=== PATIENT | female | born 1985 | race American Indian/Alaskan Native ===

== ENCOUNTER 2016-12-29 11:08 | Emergency (ER) | payer MEDICAID ==
[2016-12-29 11:18] VITALS: BP 110/59
[2016-12-29 11:55] LABS: Hematocrit 32.9 % (30.3-42.9); Mean Corpuscular HGB Conc 34 % (30-34); Mean Corpuscular Hemoglobin 28 pg (28-32); Mean Corpuscular Volume 83 fl (79-97); Platelet Count 203 K/mm3 (140-440); Red Blood Count 3.99 M/mm3 (3.65-5.03); Red Cell Distribution Width 13.8 % (13.2-15.2); White Blood Count 9.5 K/mm3 (4.5-11.0)
[2016-12-29 11:59] LABS: Bacteria,Urine 1+ /HPF (Negative); Bilirubin,Urine NEG (Negative); Blood,Urine NEG (Negative); Ketones,Urine NEG (Negative); Leukocyte Esterase,Urine NEG (Negative); Nitrite,Urine NEG (Negative); Protein,Urine <15 mg/dL mg/dL (Negative); Urobilinogen,Urine < 2.0 mg/dL (<2.0); WBC,Urine < 1.0 /HPF (0.0-6.0)
[2016-12-29 12:12] LABS: Anion Gap 19 mmol/L; BUN/Creatinine Ratio 12; Blood Urea Nitrogen 6 mg/dL (7-17); Calcium 8.9 mg/dL (8.4-10.2); Carbon Dioxide 24 mmol/L (22-30); Chloride 97.1 mmol/L (98-107); Glucose 92 mg/dL (65-100); Potassium 3.8 mmol/L (3.6-5.0); Sodium 136 mmol/L (137-145)
== END 2016-12-29 12:00 | disposition left against medical advice (07) ==
LOC: ED 11:08
DX: Z53.21 Procedure and treatment not carried out due to patient leaving prior to being seen by health care provider (principal)
CPT/HCPCS: 36415; 80048; 81001; 84702; 85027

== ENCOUNTER 2017-05-08 16:58 | Outpatient (CLI) | payer MEDICAID ==
[2017-05-08] MEDS ORDERED: LACTATED RINGERS 500 ML IV ONE (18:43)
[2017-05-08 19:07] LABS: Bacteria,Urine 2+ /HPF (Negative); Bilirubin,Urine NEG (Negative); Blood,Urine NEG (Negative); Color,Urine Yellow (Yellow); Mucus,Urine FEW /HPF; Protein,Urine <15 mg/dL mg/dL (Negative); Urobilinogen,Urine < 2.0 mg/dL (<2.0)
[2017-05-08] MEDS ORDERED: ROCEPHIN/NS 1 GM/50 ML 1 GM/50 ML BAG IV ONE (20:48)
[2017-05-08] MEDS ORDERED: BRETHINE SUB-Q ONE (20:48)
[2017-05-08] MEDS ORDERED: NORMOSOL-R PH 7.4 1,000 ML IV ONE ×2 (20:50→20:52)
[2017-05-08] MEDS ORDERED: cefTRIAXone 1 GM in NACL 0.9% 20 ML IV ONE (21:00)
[2017-05-08] MEDS ORDERED: NACL 0.9% 100 ML ONE (21:49)
[2017-05-08 21:56] VITALS: BP 124/63
--- NOTE | 2017-05-08 22:22 | Event Note ---
Date: 05/08/17 Pt does not appear to have SROM as per triage nurse exam. She does seem to have uti and was given rocephin 1g IV. she also has gotten IVFs for the contractions. cx was 1cm. Will monitor closely and if no cervical change will d/ w home. BPP and COCO were both normal with 10/10 as final scoring.
--- NOTE | 2017-05-09 00:05 | Ultrasound Report ---
FINAL REPORT PROCEDURE: US OB BPP WO NON-STRESS TECHNIQUE: Sonographic evaluation for breathing, movement, tone, and amniotic fluid volume was performed. CPT 77286 HISTORY: catogery 2 tracing COMPARISON: No prior studies are available for comparison. FINDINGS: Amniotic fluid volume: Normal-score 2. At least one vertical pocket > 2 cm or more in vertical axis. breathing: Normal-score 2. movement: Normal-score 2. tone: Normal. Score: 8 of 8. heart rate is 156 beats per minute IMPRESSION: Normal biophysical profile.
--- NOTE | 2017-05-09 00:06 | Ultrasound Report ---
FINAL REPORT PROCEDURE: US OB LIMITED TECHNIQUE: Real-time limited sonographic examination was performed for evaluation of amniotic fluid for each fetus with image documentation (1 or more fetuses). CPT 95853 HISTORY: leaking fluids COMPARISON: No prior studies are available for comparison. FINDINGS: There single intrauterine gestation with cephalic presentation. heart rate is 156 beats per minute. Amniotic fluid index is 14 centimeters. IMPRESSION: 1 amniotic fluid index is 14 centimeters.
[2017-05-09] MEDS ORDERED: NACL 0.9% IV SCH (03:00)
== END 2017-05-08 22:47 | disposition home or self-care (01) ==
LOC: TRG 16:58
PROVIDERS: ATTEND Obstetrics & Gynecology
DX: O42.913 Preterm premature rupture of membranes, unspecified as to length of time between rupture and onset of labor, third trimester (principal); O47.03 False labor before 37 completed weeks of gestation, third trimester; Z3A.33 33 weeks gestation of pregnancy
CPT/HCPCS: 76815; 76819; 81001; J0696; J3105

== ENCOUNTER 2017-06-09 23:16 | Outpatient (CLI) | payer MEDICAID | END 2017-06-10 | disposition home or self-care (01) | LOC: TRG 23:16 | PROVIDERS: ATTEND Obstetrics & Gynecology | DX: O47.1 False labor at or after 37 completed weeks of gestation (principal); Z3A.38 38 weeks gestation of pregnancy | CPT/HCPCS: 59025 ==

== ENCOUNTER 2017-06-15 06:36 | Inpatient (IN) | payer MEDICAID ==
[2017-06-15] MEDS ORDERED: MINERAL OIL PO PRN (07:58)
[2017-06-15] MEDS ORDERED: STADOL IV PRN (07:58)
[2017-06-15] MEDS ORDERED: ePHEDrine SULFATE IV PRN ×2 (07:58→11:00)
[2017-06-15] MEDS ORDERED: SUBLIMAZE IV PRN (07:58)
[2017-06-15] MEDS ORDERED: XYLOCAINE 2% INFILTRATI ONE (07:58)
[2017-06-15] MEDS ORDERED: BRETHINE SUB-Q PRN (07:58)
[2017-06-15] MEDS ORDERED: ZOFRAN IV PRN (07:58)
[2017-06-15] MEDS ORDERED: PITOCin/NS 20 UNIT/1000ML DRIP 20 UNITS/1,000 ML BAG IV SCH ×2 (08:00→16:57)
--- NOTE | 2017-06-15 08:14 | History and Physical Report ---
History of Present Illness Date of examination: 06/15/17 Chief complaint: LABOR, ctx rated 7/10 on pain scale History of present illness: EDC Calculations by LMP: 06/23/2017 Past History : 5 Term Births: 2 Premature Births: 0 Living Children: 2 Para: 2 Mult. Births: 0 Prev : 0 Prev. attempt? 0 Aborta: 2 Elect. Ab: 2 Spont. Ab: 0 Ectopics: 0 # 1 Delivery date: 2000 Delivery type: EAB # 2 Delivery date: 05/22/2006 Weeks Gestation: 37 labor: no Delivery type: Hours of labor: 7 Anesthesia type: epidural Delivery location: [place] [facility] Sex: Female weight: 6-11 Comments: no complications # 3 Delivery date: 08/25/2011 Weeks Gestation: 38 labor: no Delivery type: Vaginal Hours of labor: 5 Anesthesia type: epidural Delivery location: [facility] Sex: female weight: 6.75 Comments: none # 4 Delivery date: 03/24/2016 Delivery type: EAB Past Medical History: Anemia Past Surgical History: TOP 2016 D&C:(2000) Family History Summary: Other family member - Has No Family History of Ovarvian Cancer - Entered On: Other family member - Has No Family History of Colon Cancer - Entered On: 2016 Other family member - Has No Family History of Breast Cancer - Entered On: 2016 Other family member - Has Family History of Lung Cancer - Entered On: 10/30/2016 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 of genital herpes: no Genetic History Congenital Heart Defect: Mom: no Dad: no Ciro Disease: Mom: no Dad: no Thalassemia Mom: no Dad: no Neural Tube Defect Mom: no Dad: no Down's Syndrome Mom: no Dad: no Uzair-Sachs Mom: no Dad: no Sickle Cell Disease/Trait Mom: yes Dad: no Comments: Father has trait Hemophilia Mom: no Dad: no Muscular Dystrophy Mom: no Dad: no Cystic Fibrosis Mom: no Dad: no [place] Chorea Mom: no Dad: no Mental Retardation Mom: no Dad: no Fragile X Mom: no Dad: no Other Genetic/Chromosomal Disorder Mom: no Dad: no Child w/other defect Mom: no Dad: no Enviromental Exposures Xray Exposure: yes Medication, drug, or alcohol use since LMP: no Chemical/Other Exposure: no Exposure to Cat Liter: no Hx of Parvovirus (Fifth Disease): no Comments: Dental Active Medications (reviewed today): PROMETHAZINE HCL 25 MG TABS (PROMETHAZINE HCL) 1 po q 6 hrs prn nausea FORMULA 27-1 MG ORAL TABS ( VIT-FE FUMARATE-FA) 1 po q day as directed Current Allergies (reviewed today): No known allergies Past History Past Medical History: other (see HPI) Past Surgical History: other (see HPI) 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) Family/Genetic History: other (See HPI) - Obstetrical History Expected Date of Delivery: 06/23/17 Actual Gestation: 38 Week(s) 6 Day(s) : 5 Para: 2 Hx # Term Pregnancies: 2 Number of Pregnancies: 0 Spontaneous Abortions: 0 Induced : 2 Number of Living Children: 2 Medications and Allergies Allergies Allergy/AdvReac Type Severity Reaction Status Date / Time No Known Allergies Allergy Unverified 01/04/14 17:40 Home Medications Medication Instructions Recorded Confirmed Last Taken Type Tablet 1 tab PO QDAY 06/09/17 06/15/17 06/14/17 History Active Meds: Active Medications Butorphanol Tartrate (Stadol) 2 mg IV Q2H PRN PRN Reason: Pain , Severe (7-10) Ephedrine Sulfate (Ephedrine Sulfate) 10 mg IV Q2M PRN PRN Reason: Hypotension Fentanyl (Sublimaze) 100 mcg IV Q2H PRN PRN Reason: Labor Pain Lactated Ringer's (Lactated Ringers) 1,000 mls @ 125 mls/hr IV DIRECT HESHAM Oxytocin/Sodium Chloride (Pitocin/Ns 20 Unit/1000ml Drip) 20 units in 1,000 mls @ 125 mls/hr IV DIRECT HESHAM Ampicillin Sodium (Polycillin/Ns 2 Gm/100 Ml) 2 gm in 100 mls @ 100 mls/hr IV ONCE HESHAM Ampicillin Sodium (Ampicillin/Ns 1 Gm/50 Ml) 1 gm in 50 mls @ 100 mls/hr IV Q4H HESHAM Lidocaine (Xylocaine 2%) 20 ml INFILTRATI ONCE ONE Stop: 06/15/17 07:59 Mineral Oil (Mineral Oil) 30 ml PO QHS PRN PRN Reason: Constipation Ondansetron HCl (Zofran) 4 mg IV Q8H PRN PRN Reason: Nausea And Vomiting Terbutaline Sulfate (Brethine) 0.25 mg SUB-Q ONCE PRN PRN Reason: Hyperstimulation/Hypertonicity Review of Systems All systems: negative - Vital Signs Vital signs: Vital Signs Pulse BP 94 H 119/58 06/15/17 06:51 06/15/17 06:51 Temp Pulse Resp BP Pulse Ox 98.5 F 95 H 18 119/58 100 06/15/17 06:56 06/15/17 07:59 06/15/17 06:56 06/15/17 06:51 06/15/17 07:59 - Physical Exam Breasts: Positive: normal Cardiovascular: Regular rate Lungs: Positive: Clear to auscultation, Normal air movement Abdomen: Positive: normal appearance, soft Genitourinary (Female): Positive: normal external genitalia, normal perenium Vulva: both: normal Vagina: Positive: normal moisture Uterus: Positive: normal size, normal contour Extremities: Positive: normal - Obstetrical FHR: auscultation normal Uterine Contraction Monitor Mode: External Cervical Dilatation: 5 Uterine Contraction Pattern: Regular Uterine Tone Measurement Phase: Contraction Uterine Contraction Intensity: Moderate Results All other labs normal. 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 GBS+, Admission orders in chart. Dr. Nieves aware. anticipate . - Patient Problems (1) Anemia affecting in third trimester Current Visit: Yes Status: Acute (2) 39 weeks gestation of Current Visit: Yes Status: Acute (3) Active labor at term Current Visit: Yes Status: Acute (4) GBS (group B Streptococcus carrier), +RV culture, currently Current Visit: Yes Status: Acute
[2017-06-15] MEDS: LACTATED RINGERS 1,000 ML IV SCH ×3 (08:30→10:54)
[2017-06-15 08:37] LABS: Hematocrit 28.9 % (30.3-42.9); Hemoglobin 8.9 gm/dl (10.1-14.3); Mean Corpuscular HGB Conc 31 % (30-34); Mean Corpuscular Volume 72 fl (79-97); Platelet Count 218 K/mm3 (140-440); Red Blood Count 4.03 M/mm3 (3.65-5.03); Red Cell Distribution Width 17.7 % (13.2-15.2)
[2017-06-15 08:42] LABS: Mean Corpuscular Hemoglobin 22 pg (28-32)
[2017-06-15] MEDS ORDERED: POLYCILLIN/NS 2 GM/100 ML 2 GM/100 ML BAG IV SCH (09:00)
--- NOTE | 2017-06-15 10:46 | Anesthesia Consultation ---
Anesthesia Consult and Med Hx Date of service: 06/15/17 - Airway Anesthetic Teeth Evaluation: Good ROM Head & Neck: Adequate Mental/Hyoid Distance: Adequate Mallampati Class: Class II Intubation Access Assessment: Good - Pulmonary Exam CTA: Yes - Cardiac Exam Cardiac Exam: No Murmur - Pre-Operative Health Status ASA Pre-Surgery Classification: ASA2 Proposed Anesthetic Plan: Epidural - Pulmonary Hx Asthma: No COPD: No Hx Pneumonia: No - Cardiovascular System Hx Hypertension: No - Central Nervous System Hx Seizures: No Hx Psychiatric Problems: No - Endocrine Hx Renal Disease: No Hx End Stage Renal Disease: No Hx Hypothyroidism: No Hx Hyperthyroidism: No - Hematic Hx Anemia: Yes Hx Sickle Cell Disease: Yes (TRAIT) - Other Systems Hx Alcohol Use: No
[2017-06-15] MEDS ORDERED: fentaNYL-BUPIV 2 MCG/ML-0.125% 200 MCG/100 ML BAG EPIDURAL SCH (11:00)
[2017-06-15] MEDS ORDERED: NARCAN 2 MG/2 ML IV PRN (11:00)
[2017-06-15] MEDS ORDERED: AMPICILLIN/NS 1 GM/50 ML 1 GM/50 ML BAG IV SCH (13:00)
[2017-06-15] MEDS ORDERED: PITOCin/NS 30 UNIT/500ML 30 UNITS/500 ML BAG IV SCH (13:00)
--- NOTE | 2017-06-15 14:39 | Procedure Note ---
OB Delivery Note - Delivery Date of Delivery: 06/15/17 ( male) Medical Stenographer: MARYAM HAWTHORNE Estimated blood loss: 100cc - Vaginal Delivery presentation: vertex Delivery position: OA Intrapartum events: none Delivery induction: none Delivery augmentation: pitocin Delivery monitor: external FHT, external uterine Route of delivery: Delivery placenta: spontaneous Delivery cord: nuchal cord, 3 umbilical vessels Episiotomy: none Delivery laceration: none Anesthesia: epidural Delivery comments: Male infant delivered NELSON over intact perineum. Placed skin to skin on mother' s abd. 3 vessel cord clamped and cut, cord blood collected. Placenta del intact and complete, pit to IVF. Fundus firm, lochia scant. EBL 100. Apgars 8/9 , wt 7#2oz. Mother and infant remain LDR stable. - A at 1 minute: 8 at 5 minutes: 9 Gender: Male (7#2)
[2017-06-15] MEDS ORDERED: MOTRIN PO ONE (15:57)
[2017-06-15] MEDS ORDERED: SODIUM CHLORIDE FLUSH SYRINGE 10 ML IV SCH (16:57)
[2017-06-15] MEDS ORDERED: MILK OF MAGNESIA PO PRN (16:57)
[2017-06-15] MEDS ORDERED: DULCOLAX PR PRN (16:57)
[2017-06-15] MEDS ORDERED: PHENERGAN PO PRN (16:57)
[2017-06-15] MEDS ORDERED: TUCKS PAD TP PRN (16:57)
[2017-06-15] MEDS ORDERED: LANSINOH TP PRN (16:57)
[2017-06-15] MEDS ORDERED: BENADRYL PO PRN (16:57)
[2017-06-15] MEDS ORDERED: DERMOPLAST TP PRN (16:57)
[2017-06-15] MEDS: COLACE PO SCH (22:05)
[2017-06-15] MEDS: FEOSOL PO SCH (22:05)
[2017-06-15] MEDS: MOTRIN PO SCH (23:40)
[2017-06-16 03:02] LABS: Hematocrit 23.4 % (30.3-42.9); Hemoglobin 7.5 gm/dl (10.1-14.3)
[2017-06-16] MEDS: MOTRIN PO SCH ×2 (05:43→13:17)
[2017-06-16] MEDS ORDERED: BOOSTRIX IM ONE (06:00)
--- NOTE | 2017-06-16 08:10 | Discharge Summary ---
Providers - Providers Date of Admission: 06/15/17 08:16 Date of discharge: 06/16/17 Attending physician: TAMMY VANCE 06/15/17 16:57 Consult to Engine Dynamometer Tester [CONS] Routine Reason For Exam: assistance with , SNS Primary care physician: TAMMY VANCE Hospitalization Reason for admission: Labor Condition: Good Pertinent studies: pre existing anemia, post delivery H&H 7.5/23.4 Procedures: vaginal delivery Hospital course: uncomplicated vaginal delivery and course Disposition: - TO HOME OR SELFCARE - Discharge Diagnoses (1) (normal spontaneous vaginal delivery) Status: Acute Core Measure Documentation - Palliative Care Palliative Care/ Comfort Measures: Not Applicable - Core Measures Any of the following diagnoses?: none Exam - Constitutional Vitals: Temp Pulse Resp BP Pulse Ox 98.0 F 93 H 18 111/55 73 L 06/16/17 00:00 06/16/17 00:00 06/16/17 00:00 06/16/17 00:00 06/15/17 15:34 General appearance: Present: no acute distress, well-nourished - EENT Eyes: Present: PERRL ENT: hearing intact, clear oral mucosa - Neck Neck: Present: supple, normal ROM - Respiratory Respiratory effort: normal Respiratory: bilateral: CTA - Cardiovascular Heart Sounds: Present: S1 & S2. Absent: rub, click - Extremities Extremities: pulses symmetrical, No edema Peripheral Pulses: within normal limits - Abdominal General gastrointestinal: Present: soft, non-tender, non-distended, normal bowel sounds Female genitourinary: Present: normal - Integumentary Integumentary: Present: clear, warm, dry - Musculoskeletal Musculoskeletal: gait normal, strength equal bilaterally - Psychiatric Psychiatric: appropriate mood/affect, intact judgment & insight - Neurologic Neurologic: CNII-XII intact, moves all extremities - Additional findings Additional findings: lochia scant, fundus firm, VSSAF, no s/s anemia Plan Activity: no restrictions Diet: regular Follow up with: TAMMY VANCE MD [Primary Care Provider] - 7 Days (Congratulations! Please call [phone] to schedule your son's circumcision in 1 week and your visit in 4 weeks. Bring EMLA cream to your son's appointment and await further instructions. Call for any questions or concerns.) Forms: [facility] Discharge Summary Prescriptions: Ferrous Sulfate [Feosol 325 MG tab] 325 mg PO BID #90 tablet Ibuprofen [Motrin 800 MG tab] 800 mg PO Q8HR PRN #30 tablet PRN Reason: Pain Lidocain2.5%/Prilocai2.5% [Emla] 5 gm TP ONCE PRN #1 tube PRN Reason: Pain
[2017-06-16] MEDS: TYLENOL PO PRN ×2 (09:02→15:51)
[2017-06-16] MEDS ORDERED: PRENATAL VITAMIN PO SCH (10:00)
[2017-06-16] MEDS: FEOSOL PO SCH (10:36)
[2017-06-16] MEDS: COLACE PO SCH (10:36)
[2017-06-16 17:25] VITALS: BP 106/55
== END 2017-06-16 18:00 | disposition home or self-care (01) | DRG 775 ==
LOC: TRG 06:36 → LD 08:16 → OB 16:52
PROVIDERS: ADMIT Obstetrics & Gynecology; ATTEND Obstetrics & Gynecology
PROC: 10E0XZZ Delivery of Products of Conception, External Approach (ICD-10-PCS; principal; 2017-06-15)
PROC: 3E0R3BZ Introduction of Anesthetic Agent into Spinal Canal, Percutaneous Approach (ICD-10-PCS; 2017-06-15)
PROC: 00HU33Z Insertion of Infusion Device into Spinal Canal, Percutaneous Approach (ICD-10-PCS; 2017-06-15)
DX: O99.824 Streptococcus B carrier state complicating childbirth (principal); O99.02 Anemia complicating childbirth; D64.9 Anemia, unspecified; O69.81X0 Labor and delivery complicated by cord around neck, without compression, not applicable or unspecified; Z37.0 Single live birth; Z3A.38 38 weeks gestation of pregnancy
CPT/HCPCS: 36415; 85014; 85018; 85027; 86592; 86850; 86900; 86901; 90471; 90715; J0290; J2590; J3010; J7120